=== PATIENT | male | born 1955 | race Caucasian/White ===

== ENCOUNTER 2019-12-03 17:49 | Emergency (ER) | payer OTHER ==
[~2019-12-03 17:49] MED LIST: Iopamidol 370 76% 100 ML VIAL ONE
[2019-12-03 18:25] LABS: #Basophils 0.2 thou/uL (0.0-0.2); #Eosinphils 0.3 thou/uL (0.0-0.7); #Lymphocytes 3.5 thou/uL (1.20-3.40); #Monocytes 1.4 thou/uL (0.11-0.59); #Neutrophils 10.7 thou/uL (1.40-6.50); %Basophils 1.2 % (0.0-1.0); %Lymphocytes 21.6 % (21.0-51.0); %Monocytes 8.7 % (0.0-10.0); %Neutrophils 66.6 % (42.0-75.0); Hemoglobin 17.5 g/dL (14.0-18.0); Mean Corpuscular HGB CONC 30.5 g/dL (32.0-36.0); Mean Corpuscular Hemoglobin 30.5 pg (27.0-31.0); Mean Platelet Volume 6.4 fL (7.4-10.4); Platelet Count 181 thou/uL (130-400); RBC Distribution Width 12.9 % (11.5-14.5); Red Blood Cell (RBC) Count 5.74 mill/uL (4.70-6.10); White Blood Cell (WBC) Count 16.1 thou/uL (4.8-10.8)
[2019-12-03 18:38] LABS: ALT (SGPT) 30 U/L (8-55); AST (SGOT) 23 U/L (5-34); Albumin 4.2 g/dL (3.4-4.8); Alkaline Phosphatase 55 U/L (40-110); Anion Gap 16 mmol/L (10-20); BUN (Urea Nitrogen) 15 mg/dL (8.4-25.7); Bilirubin, Total 0.4 mg/dL (0.2-1.2); Calc. Creatinine Clearance 0 mL/min (70-130); Calcium 9.4 mg/dL (7.8-10.44); Carbon Dioxide 26 mmol/L (23-31); Chloride 106 mmol/L (98-107); Estimated GFR-MDRD 54; Globulin 3.2 g/dL (2.4-3.5); Glucose 87 mg/dL (80-115); Lipase 20 U/L (8-78); Potassium 3.6 mmol/L (3.5-5.1); Protein, Total 7.4 g/dL (5.8-8.1); Sodium 144 mmol/L (136-145)
[2019-12-03 18:43] LABS: Bilirubin Negative (Negative); Blood, Urine Small (Negative); Clarity Clear (Clear); Glucose, Urine (Dipstick) Negative (Negative); Ketone, Urine Negative (Negative); Leukocyte Negative (Negative); Nitrite Negative (Negative); Protein, Urine (Dipstick) Negative (Neg-Trace); Urobilinogen 0.2 mg/dL (Less than 2); pH, Urine 5.5 (5.0-9.0)
[2019-12-03 18:44] LABS: Specific Gravity, Urine 1.024 (1.002-1.036)
[2019-12-03 18:47] LABS: Bacteria/HPF Rare-Few HPF (None Seen); RBC/HPF 0-3 HPF (0-3); Squamous Epithelial None Seen HPF (0-3); WBC/HPF 0-3 HPF (0-3)
--- NOTE | 2019-12-03 19:43 | RAD ---
2 VIEWS CHEST: Date: 12/03/2019 COMPARISON: None. HISTORY: Upper abdominal pain for several months. FINDINGS: Two views of the chest show a cardiomediastinal silhouette which is upper limits of normal in size. T he patient may have a large hiatal hernia in the midline. There is no evidence of consolidation, mass , or pleural effusion. IMPRESSION: 1. No evidence of acute cardiopulmonary disease. 2. Large hiatal hernia. POS: EAA
--- NOTE | 2019-12-03 20:21 | CT ---
CT ABDOMEN AND PELVIS PERFORMED WITH CONTRAST ENHANCEMENT: Date: 12/03/2019 HISTORY: Left-sided abdomen pain. FINDINGS: CT ABDOMEN: The lung bases show some chronic change. There is a large hernia with extension of almost the entire stomach into this wide-mouthed hernia. The liver, spleen, pancreas, and gallbladder regions all appea r unremarkable. Right and left adrenal glands are normal. Punctate nonobstructing renal calculi are seen bilaterally. No dilatation of either ureter and no ureteral calculus. There is no significant periaortic or mesen teric adenopathy. CT PELVIS: Sigmoid diverticulosis is noted. Mildly prominent prostate. Appendix region appears unremarkable. IMPRESSION: 1. Punctate nonobstructing bilateral renal calculi. 2. Large hiatal hernia containing almost the entire stomach. 3. Sigmoid diverticulosis. POS: KASSANDRA
== END 2019-12-03 19:42 | disposition home or self-care (01) ==
LOC: BURERS 17:49
DX: K44.9 Diaphragmatic hernia without obstruction or gangrene (principal); E11.9 Type 2 diabetes mellitus without complications; E78.5 Hyperlipidemia, unspecified; I10 Essential (primary) hypertension; E66.9 Obesity, unspecified; F17.210 Nicotine dependence, cigarettes, uncomplicated; Z79.899 Other long term (current) drug therapy; Z79.82 Long term (current) use of aspirin; Z79.84 Long term (current) use of oral hypoglycemic drugs
CPT/HCPCS: 71046; 74177; 80053; 81003; 81015; 83690; 84484; 85025; 93005; 94760; Q9967